=== PATIENT | male | born 1960 | race Caucasian/White ===

== ENCOUNTER 2023-08-17 19:45 | Emergency (ER) | payer MEDICAID ==
[~2023-08-17] VITALS: Ht 182.9 cm; Wt 90.0 kg
[2023-08-17 19:53] VITALS: TEMP 97.9
[2023-08-17 20:49] LABS: BILIRUBIN,URINE NEGATIVE (Neg); CLARITY,URINE SLIGHTLY CLOUDY (Clear); GLUCOSE, URINE 100 mg/dl (Neg); KETONES,URINE NEGATIVE (Neg); LEUKOCYTE ESTERASE ,URINE NEGATIVE (Neg); NITRITES, URINE NEGATIVE (Neg); OCCULT BLOOD,URINE MODERATE (Neg); PH,URINE 5.5 (4.8-8.0); PROTEIN,URINE TRACE mg/dl (Neg); UROBILINOGEN,URINE 0.2 E.U/dL (0.2-1.0)
[2023-08-17] MEDS ORDERED: normal saline 1000ML IV soln IVB ONE (20:50)
[2023-08-17] MEDS ORDERED: morphine 4 MG/ML inj SYRINge IV PRN (20:50)
[2023-08-17] MEDS ORDERED: ondansetron/PF 4mg/2ml inj IV ONE (20:50)
[2023-08-17 20:59] VITALS: BP 104/50; PULSE 70; O2SAT 98
[2023-08-17 21:00] LABS: COLOR,URINE DARK YELLOW (Yellow); UA COLLECTION TYPE CLN CATCH MIDSTREAM
[2023-08-17 21:00] LABS: BASOPHILS % (AUTO) 0.2 % (0-1); EOSINOPHILS # (AUTO) 0.3 X10'3 (0-0.9); EOSINOPHILS % (AUTO) 2.9 % (0-6); HEMATOCRIT 45.1 % (42.0-52.0); HEMOGLOBIN 15.3 g/dl (14.0-17.9); LYMPHOCYTES # (AUTO) 1.5 X10'3 (1.1-4.8); LYMPHOCYTES % (AUTO) 12.6 % (21-51); MEAN CORPUSCULAR HGB CONC 33.9 g/dL (33.0-36.5); MEAN CORPUSCULAR VOLUME 94.6 FL (78-98); MEAN PLATELET VOLUME 7.3 FL (7.4-10.4); MONOCYTES # (AUTO) 0.8 X10'3 (0-0.9); MONOCYTES % (AUTO) 6.6 % (2-12); NEUTROPHILS % (AUTO) 77.7 % (42-75); PLATELET COUNT 327 X10'3 (140-440); RED BLOOD COUNT 4.76 X10'6 (4.70-6.10); RED CELL DISTRIBUTION WIDTH 13.5 % (11.5-14.5); WHITE BLOOD COUNT 11.5 X10'3 (4.5-11.0)
[2023-08-17 21:01] LABS: MUCUS STRANDS MANY /LPF (Neg); SQUAMOUS EPITHELIAL CELL,UR FEW /LPF (FEW)
[2023-08-17 21:02] LABS: BACTERIA,URINE 2+ /HPF (Neg)
[2023-08-17 21:03] LABS: RBC,URINE 50-100 /HPF (0-2); WBC,URINE 50-100 /HPF (0-4)
[2023-08-17 21:04] LABS: RENAL CELLS, URINE MODERATE /HPF; WBC CLUMPS,URINE FEW /HPF (NEGATIVE)
[2023-08-17 21:13] LABS: ALANINE AMINOTRANSFERASE 24 U/L (12-78); ALBUMIN 3.1 G/DL (3.4-5.0); ALBUMIN/GLOBULIN RATIO 0.7 (1.1-1.5); ALKALINE PHOSPHATASE 66 IU/L (46-116); ANION GAP 9 (8-16); ASPARTATE AMINO TRANSFERASE 12 U/L (10-37); BILIRUBIN,TOTAL 0.3 MG/DL (0.1-1.0); BLOOD UREA NITROGEN 19 MG/DL (7-18); BUN/CREATININE RATIO 17.6 (10.0-20.0); CALCIUM 9.2 MG/DL (8.5-10.1); CHLORIDE 105 MMOL/L (99-107); CREATININE 1.08 MG/DL (0.60-1.10); GLUCOSE 140 MG/DL (70-104); LIPASE 27 U/L (16-77); POTASSIUM 4.1 MMOL/L (3.5-5.1); SODIUM 140 MMOL/L (135-145); TOTAL CARBON DIOXIDE 26.2 MMOL/L (24-32); TOTAL PROTEIN 7.3 G/DL (6.4-8.2); eCRCL 79 ML/MIN; eGFR 70 ML/MIN
[2023-08-17] MEDS ORDERED: CefTRIAXone 2gm/D5W 50ml BAG 50 ML IV ONE (22:00)
[2023-08-17] MEDS ORDERED: CEPH-585 PO (22:00)
[2023-08-17] MEDS ORDERED: HYDR-3965 PO ×2 (22:00→22:02)
[2023-08-17 23:09] VITALS: RESP 18
== END 2023-08-17 23:10 | disposition home or self-care (01) ==
LOC: ER 19:47
DX: N39.0 Urinary tract infection, site not specified (principal); K40.90 Unilateral inguinal hernia, without obstruction or gangrene, not specified as recurrent; Z79.2 Long term (current) use of antibiotics; Z79.899 Other long term (current) drug therapy
CPT/HCPCS: 36415; 74176; 80053; 81001; 83690; 85025; 96374; 96375; 99285; J0696; J2270; J2405; J7030

== ENCOUNTER 2023-12-20 14:42 | Outpatient (CLI) | payer MEDICAID | END 2023-12-20 23:59 | disposition home or self-care (01) | LOC: RAD 14:42 | PROVIDERS: ATTEND Student in an Organized Health Care Education/Training Program | DX: M51.37 Other intervertebral disc degeneration, lumbosacral region (principal); I70.0 Atherosclerosis of aorta; M47.812 Spondylosis without myelopathy or radiculopathy, cervical region; M54.9 Dorsalgia, unspecified; M62.830 Muscle spasm of back | CPT/HCPCS: 72050; 72074; 72110 ==

== ENCOUNTER 2024-01-15 12:41 | Emergency (ER) | payer MEDICAID ==
[~2024-01-15] VITALS: Ht 175.3 cm; Wt 71.2 kg
[2024-01-15] MEDS ORDERED: LIDOcaine 5% patch TP SCH (16:05)
[2024-01-15] MEDS: dexamethasone sod phosphate 10mg/ml inj IM STA (16:32)
[2024-01-15] MEDS: HYDROcodone/acetaminophen 10/325mg tab PO ONE (16:32)
[2024-01-15] MEDS: LIDOcaine 5% patch TP ONE (16:33)
[2024-01-15] MEDS ORDERED: LIDO700A32 TOP (17:06)
[2024-01-15] MEDS ORDERED: HYDR-3972 PO (17:06)
[2024-01-15 17:22] VITALS: BP 143/88; PULSE 80; RESP 18; TEMP 98.4; O2SAT 98
== END 2024-01-15 17:24 | disposition home or self-care (01) ==
LOC: ER 12:41
DX: M54.16 Radiculopathy, lumbar region (principal); G89.29 Other chronic pain; I25.2 Old myocardial infarction; Z87.81 Personal history of (healed) traumatic fracture; Z79.899 Other long term (current) drug therapy
CPT/HCPCS: 72100; 96372; 99284; J1100